=== PATIENT | male | born 1965 | race Caucasian/White ===

== ENCOUNTER 2019-04-16 11:47 | Emergency (ER) | payer OTHER ==
--- NOTE | 2019-04-16 12:07 | EDM.PDOC ---
ED HPI GENERAL MEDICAL PROBLEM - General Stated Complaint: LEG CELLULITIS Time Seen by Provider: 04/16/19 11:50 Source of Information: Reports: Patient History Limitations: Reports: No Limitations - History of Present Illness INITIAL COMMENTS - FREE TEXT/NARRATIVE: This patient presents to the ED for evaluation of an area of redness to his leg. He states he first noticed this several days ago and it has gotten some worse. He states he had a fever on the first day he noticed it (04/13) but has not had one since. His appetite is good and he denies vomiting or diarrhea. He is currently on Neelam for psoriasis and states he has had several skin infections since beginning the medication. - Related Data Allergies Allergy/AdvReac Type Severity Reaction Status Date / Time No Known Allergies Allergy Verified 04/16/19 11:55 Home Meds: Home Meds . [Unable to Verify Home Med List] 04/18/14 [History] ED ROS GENERAL - Review of Systems Review Of Systems: See Below Constitutional: Reports: Fever HEENT: Reports: No Symptoms Respiratory: Reports: No Symptoms Cardiovascular: Reports: No Symptoms : Reports: No Symptoms Musculoskeletal: Reports: No Symptoms Skin: Reports: Rash, Erythema Neurological: Reports: No Symptoms ED EXAM, SKIN/RASH Exam: See Below Exam Limited By: No Limitations General Appearance: Alert, WD/WN, No Apparent Distress Eye Exam: Bilateral Eye: PERRL Ears: Normal External Exam Nose: Normal Inspection Throat/Mouth: Normal Inspection Head: Atraumatic, Normocephalic Neck: Normal Inspection, Full Range of Motion Respiratory/Chest: No Respiratory Distress Extremities: Normal Inspection, Normal Range of Motion Neurological: Alert, Oriented Skin: Warm, Dry, Intact Location, Skin: Lower Extremity, Left (cicumfrential erthyema staring just distal to knee; well indurated, warm to touch, blanches. Distal CMS intact. Mild tenderness with palpation. No open lesions noted.), Other Associated features: Warmth, Tenderness, Swelling, Induration, Inflammation Lymphatic: No Adenopathy Course - Re-Assessments/Exams Free Text/Narrative Re-Assessment/Exam: 04/16/19 12:07 This patient presents for evaluation of skin concern as detailed above. History and physical exam are consistent with cellulitis. There does not appear to be any complication of cellulitis such as necrotizing fascitis, lymphangitis, lymphadenitis, abscess, osteomyelitis, or sepsis. The patient is immunosuppressed and was started on Bactrim for this as he has excellent response to this medication in the past. Plan is for supportive outpatient management including antibiotics. Close follow-up of primary care physician to ensure no progression and rapid resolution. Cellulitis precautions for home. The patient left with complete understanding and agreement with this plan and no other complaints. Departure - Departure Time of Disposition: 12:05 Disposition: Home, Self-Care 01 Clinical Impression: Cellulitis, Cellulitis of leg Clinical Impression: (Ruled Out): Cellulitis and abscess of left leg - Discharge Information *PRESCRIPTION DRUG MONITORING PROGRAM REVIEWED*: Not Applicable Instructions: Cellulitis, Adult, [id number] Referrals: PCP,None [Primary Care Provider] - Additional Instructions: Discharge home. Bactrim 1 tablet 2 times a day by mouth. Follow up with your primary provider as needed.
[2019-04-16 12:08] VITALS: PULSE 84
== END 2019-04-16 12:02 | disposition home or self-care (01) ==
LOC: LB.ED 11:47
DX: L03.116 Cellulitis of left lower limb (principal)
CPT/HCPCS: 99283

== ENCOUNTER 2020-10-13 20:12 | Emergency (ER) | payer OTHER ==
--- NOTE | 2020-10-13 20:48 | EDM.PDOC ---
ED HPI GENERAL MEDICAL PROBLEM - General Chief Complaint: Skin Complaint Stated Complaint: cellulitis Time Seen by Provider: 10/13/20 20:45 Source of Information: Reports: Patient History Limitations: Reports: No Limitations - History of Present Illness INITIAL COMMENTS - FREE TEXT/NARRATIVE: reports cellulitis RLE -- was on bactrim - but stopped it 3 days ago -- due to allergic reaction reaction improved, but here asking to be put on another antibiotic no fever or chills. - Related Data Allergies Allergy/AdvReac Type Severity Reaction Status Date / Time No Known Allergies Allergy Verified 04/16/19 11:55 Home Meds: Home Meds . [Unable to Verify Home Med List] 04/18/14 [History] ED ROS GENERAL - Review of Systems Review Of Systems: See Below Constitutional: Reports: No Symptoms HEENT: Reports: No Symptoms Respiratory: Reports: No Symptoms Cardiovascular: Reports: No Symptoms GI/Abdominal: Reports: No Symptoms Neurological: Reports: No Symptoms Psychiatric: Reports: No Symptoms ED EXAM, SKIN/RASH Exam: See Below Exam Limited By: No Limitations General Appearance: Alert, WD/WN, No Apparent Distress Eye Exam: Bilateral Eye: EOMI Head: Atraumatic Respiratory/Chest: No Respiratory Distress Cardiovascular: Normal Peripheral Pulses Skin: Erythema Course - Orders/Labs/Meds Meds: Medications Discontinued Medications Generic Name Dose Route Start Last Admin Trade Name Meron PRN Reason Stop Dose Admin Doxycycline Hyclate 100 mg 10/13/20 20:43 Doxycycline 100 Mg Cap PO 10/13/20 20:44 ONETIME ONE - Re-Assessments/Exams Free Text/Narrative Re-Assessment/Exam: 10/13/20 20:47 will start him on doxycyclin PO BID Departure - Departure Time of Disposition: 20:47 Disposition: Home, Self-Care 01 Condition: Good Clinical Impression: Cellulitis of leg - Discharge Information *PRESCRIPTION DRUG MONITORING PROGRAM REVIEWED*: Not Applicable *COPY OF PRESCRIPTION DRUG MONITORING REPORT IN PATIENT SULEMAN: Not Applicable Instructions: Cellulitis, Adult Referrals: Kalpesh Monique MD [Primary Care Provider] - - Problem List & Annotations (1) Cellulitis of leg SNOMED Code(s): 918159898 Code(s): L03.119 - CELLULITIS OF UNSPECIFIED PART OF LIMB Status: Acute Priority: Low Current Visit: Yes Onset Date: 04/18/14 Annotation/Comment:: 04/18/14 - Left leg cellulitis - Problem List Review Problem List Initiated/Reviewed/Updated: Yes - Assessment/Plan Plan: start taking antibiotics as prescribed tylenol for pain as needed
[2020-10-13] MEDS: Doxycycline 100 MG Cap PO ONE (20:51)
== END 2020-10-13 20:56 | disposition home or self-care (01) ==
LOC: LB.ED 20:12
DX: L03.115 Cellulitis of right lower limb (principal)
CPT/HCPCS: 99283; A9270-GY

== ENCOUNTER 2024-03-14 15:48 | Emergency (ER) | payer OTHER | END 2024-03-14 16:43 | disposition home or self-care (01) | LOC: LB.ED 15:48 | DX: L03.115 Cellulitis of right lower limb (principal); R60.0 Localized edema; E11.51 Type 2 diabetes mellitus with diabetic peripheral angiopathy without gangrene; E03.9 Hypothyroidism, unspecified; Z87.891 Personal history of nicotine dependence; Z88.2 Allergy status to sulfonamides | CPT/HCPCS: 99283 ==